=== PATIENT | male | born 1940 | race Caucasian/White ===

== ENCOUNTER 2017-05-21 06:57 | Inpatient (IN) | payer MEDICARE ==
[2017-05-21] MEDS ORDERED: Famotidine 20mg/50ml 20 MG/50 ML BAG IV STA (07:06)
[2017-05-21] MEDS ORDERED: Sodium Chloride 0.9% 1,000 ML IV STA ×2 (07:06→11:13)
--- NOTE | 2017-05-21 07:14 | ED PDOC ---
Arrival/HPI - General Time Seen by Provider: 05/21/17 07:06 - History of Present Illness Narrative History of Present Illness (Text): 05/21/17 07:10 Hx provided by pt's . Pt with a hx of back pain for which he takes opioids at home. Took movantic for the first time today, after which he developed nausea , and watery diarrhea accomp by diffuse abd pain, described as cramping. No chest pain or shortness of breath. No f/c, no other complaints. Past Medical History - Provider Review Nursing Documentation Reviewed: Yes Family/Social History Family/Social History: Unknown Family HX Allergies/Home Meds Allergies/Adverse Reactions: Allergies No Known Allergies Allergy (Verified 05/21/17 07:14) Home Medications: Home Meds Medication Instructions Recorded Confirmed Acetaminophen/Oxycodone Hydr 1 tab PO QID PRN 05/21/17 05/21/17 [Percocet 10/325 mg Tab] Lubiprostone [Amitiza] 24 mcg PO DAILY 05/21/17 05/21/17 Morphine [MS Contin] 60 mg PO BID 05/21/17 05/21/17 Naloxegol Oxalate [Movantik] 25 mg PO DAILY 05/21/17 05/21/17 Pantoprazole Sodium [Protonix] 40 mg PO DAILY 05/21/17 05/21/17 Physical Exam - Physical Exam Narrative Physical Exam (Text): 05/21/17 07:14 - Review of Systems Constitutional: Normal. absent: Fatigue, Weight Change, Fevers Eyes: Normal ENT: denies sore throat, denies tristhmus Respiratory: Normal. absent: SOB, Cough, Sputum Cardiovascular: absent: Chest Pain, Palpitations, Syncope Gastrointestinal: Abdominal Pain, Diarrhea, Nausea Genitourinary: Normal. absent: Dysuria, Frequency, Hematuria Musculoskeletal: Normal. absent: Arthralgias, Back Pain, Neck Pain Skin: no rashes, no erythema Neurological: absent: Focal Weakness Endocrine: Normal Hemo/Lymphatic: Normal Psychiatric: No suicidal or homicidal ideations Physical exam Patient appears age appropriate in no respiratory distress, moderate painful distress - Systems Exam Head: Present: Atraumatic, Normocephalic Pupils: Present: PERRL Extroacular Muscles: Present: EOMI Conjunctiva: Present: Normal Mouth: Present: Moist Mucous Membranes Neck: Present: Normal Range of Motion. No: MIDLINE TENDERNESS, Paraspinal Tenderness Respiratory/Chest: Present: Clear to Auscultation, Good Air Exchange. No: Respiratory Distress, Accessory Muscle Use, Tachypneic Cardiovascular: Present: Regular Rate and Rhythm, Normal S1, S2, Peripheal Pulses Present. No: Murmurs Abdomen: Present: Normal Bowel Sounds. No: Tenderness, Distention, Peritoneal Signs, Rebound, Guarding Back: Present: Normal Inspection. No: Midline Tenderness, Paraspinal Tenderness Upper Extremity: Present: Normal Inspection. No: Cyanosis, Edema Lower Extremity: Present: Normal Inspection. No: Edema Neurological: Present: GCS=15, Speech Normal, cranial nerves II through XII fully intact with no cerebellar abnormality, neurosensory fully intact. No focal neurological deficits. Skin: Present: Warm, Dry, Normal Color. No: Rashes Lymphatic: Present: OX3, NI, NC Psychiatric: Present: Alert, Oriented x 3, Normal Insight, Normal Concentration Vital Signs Temp Pulse Resp BP Pulse Ox 05/21/17 11:56 90 16 122/72 97 05/21/17 10:47 99.1 F 05/21/17 09:32 89 16 97/61 L 97 05/21/17 07:25 77 16 120/74 95 Medical Decision Making ED Course and Treatment: 05/21/17 07:15 76yo male with abd pain, nausea and diarrhea. Abd soft/nt/nd. Pt in moderate painful distress. Pain meds, labs, imaging ordered 05/21/17 07:38 EKG shows NSR at [address]-segment elevations, normal intervals. Interpreted by me. 05/21/17 09:38 PROCEDURE: CT Abdomen and Pelvis with contrast IMPRESSION: 1. Distended gallbladder with suspected cholelithiasis, moderate intrahepatic biliary dilatation and severe dilatation of the common bile duct without evidence for choledocholithiasis. Findings are consistent for acute calculus cholecystitis. Please correlate with ultrasound examination. 2. Fatty liver. 3. 5 mm nodule in the right middle lobe. A dedicated CT scan of the thorax without intravenous contrast on a nonemergent basis is recommended for complete evaluation of the lungs. 05/21/17 10:18 zosyn and abd us ordered pt in no painful distress at this time awaiting Dr. Wong's callback 05/21/17 11:[address] Gu, covering for Dr. Wong. Accepted admission. Asked for Dr. Borges and Deon on consults. Paged made pt and family aware of and agree with plan pain currently controlled 05/21/17 12:[address] Lazo from surgical service, aware of pt in the ED - Lab Interpretations Lab Results: 05/21/17 07:15 05/21/17 07:15 Lab Results 05/21/17 07:15: Sodium 142, Potassium 3.1 L, Chloride 101, Carbon Dioxide 27, Anion Gap 17, BUN 20, Creatinine 0.8, Est GFR ( Amer) > 60, Est GFR (Non- Af Amer) > 60, Random Glucose 172 H, Calcium 9.4, Total Bilirubin 0.5, AST 32, ALT 22, Alkaline Phosphatase 114, Total Protein 7.9, Albumin 4.2, Globulin 3.7, Albumin/Globulin Ratio 1.1, Lipase 65 05/21/17 07:15: PT 11.2, INR 1.04, APTT 24.4 05/21/17 07:15: WBC 8.8, RBC 4.30, Hgb 14.3, Hct 41.0 L, MCV 95.3, MCH 33.3, MCHC 34.9, RDW 12.6, Plt Count 184, MPV 10.1, Gran % 68.3 H, Lymph % (Auto) 24.7 , Carver % (Auto) 4.6, Eos % (Auto) 2.1, Baso % (Auto) 0.3, Gran # 5.99, Lymph # 2.2, Carver # 0.4, Eos # 0.2, Baso # 0.03 05/21/17 07:07: Urine Color Yellow, Urine Appearance Clear, Urine pH 7.5, Ur Specific [place] 1.010, Urine Protein Negative, Urine Glucose (UA) Negative, Urine Ketones Negative, Urine Blood Trace-intact H, Urine Nitrate Negative, Urine Bilirubin Negative, Urine Urobilinogen 0.2, Ur Leukocyte Esterase Negative , Urine RBC 0 - 2, Urine WBC 0 - 2, Ur Epithelial Cells 0 - 2, Urine Bacteria Trace, Urine Other Usperm I have reviewed the lab results: Yes - RAD Interpretation Radiology Orders: 05/21/17 07:07 ABD & PELVIS IV CONTRAST ONLY [CT] Stat 05/21/17 10:18 ABDOMEN COMPLETE [US] Stat - Medication Orders Current Medication Orders: Sodium Chloride (Sodium Chloride 0.9%) 1,000 mls @ 100 mls/hr IV .Q10H STA Stop: 05/21/17 21:12 Discontinued Medications Hydromorphone HCl (Dilaudid) 2 mg IVP STAT STA Stop: 05/21/17 07:25 Last Admin: 05/21/17 07:31 Dose: 2 mg Famotidine (Pepcid 20mg/50ml Premix) 20 mg in 50 mls @ 100 mls/hr IV STAT STA Stop: 05/21/17 07:35 Last Admin: 05/21/17 07:25 Dose: 100 mls/hr Sodium Chloride (Sodium Chloride 0.9%) 1,000 mls @ 1,000 mls/hr IV .Q1H STA Stop: 05/21/17 08:05 Last Admin: 05/21/17 07:21 Dose: 1,000 mls/hr Magnesium Sulfate 2 gm/ Sodium (Chloride) 104 mls @ 102 mls/hr IVPB ONCE ONE Stop: 05/21/17 09:24 Last Admin: 05/21/17 12:11 Dose: 102 mls/hr Potassium Chloride (Potassium Chloride 20 Meq/100 Ml) 20 meq in 100 mls @ 50 mls/hr IVPB Q2H VASYL Stop: 05/21/17 12:29 Last Admin: 05/21/17 08:34 Dose: 50 mls/hr Piperacillin Sod/Tazobactam Sod (Zosyn 4.5 Gm In Ns 100ml) 4.5 gm in 100 mls @ 200 mls/hr IVPB STAT STA PRN Reason: Protocol Stop: 05/21/17 10:46 Iohexol (Omnipaque 350 100 Ml) Confirm Administered Dose 350 mg .ROUTE .STK-MED ONE Stop: 05/21/17 07:40 Morphine Sulfate (Morphine) 6 mg IVP STAT STA Stop: 05/21/17 07:07 Last Admin: 05/21/17 07:21 Dose: 6 mg Ondansetron HCl (Zofran Inj) 4 mg IVP STAT STA Stop: 05/21/17 07:07 Last Admin: 05/21/17 07:21 Dose: 4 mg Ondansetron HCl (Zofran Inj) 4 mg IVP STAT STA Stop: 05/21/17 08:19 Last Admin: 05/21/17 08:26 Dose: 4 mg Disposition/Present on Arrival - Present on Arrival Any Indicators Present on Arrival: No - Disposition Have Diagnosis and Disposition been Completed?: Yes Diagnosis: Cholecystitis Disposition: HOSPITALIZED Disposition Time: 11:13 Patient Plan: Admission Patient Problems: Current Active Problems Problem Status Onset Cholecystitis Acute Condition: FAIR
[2017-05-21 07:22] LABS: BASO # 0.03 K/mm3 (0.0-2.0); BASO % 0.3 % (0.0-3.0); EOS # 0.2 (0.0-0.7); EOS % 2.1 % (1.5-5.0); GRAN # 5.99 (1.4-6.5); GRAN % 68.3 % (50.0-68.0); HEMOGLOBIN 14.3 gm/dL (14.0-18.0); LYMPH # 2.2 (1.2-3.4); LYMPH % 24.7 % (22.0-35.0); MEAN CELL VOLUME 95.3 fL (80.0-105.0); MEAN CORPUSCULAR HEMOGLOBIN 33.3 pg (25.0-35.0); MEAN CORPUSCULAR HGB CONC 34.9 g/dl (31.0-37.0); MEAN PLATELET VOLUME 10.1 fl (7.0-11.0); MONO # 0.4 (0.1-0.6); MONO % 4.6 % (1.0-6.0); PLATELET COUNT 184 10^3/uL (120.0-450.0); RED CELL DISTRIBUTION WIDTH 12.6 % (11.5-14.5); WHITE BLOOD COUNT 8.8 10^3/ul (4.5-11.0)
[2017-05-21] MEDS ORDERED: HYDROmorphone 2 mg/ml ISec IVP STA (07:24)
[2017-05-21 07:37] LABS: ALB/GLOB RATIO 1.1 (1.1-1.8); ALBUMIN 4.2 g/dL (3.0-4.8); ALT/SGPT 22 U/L (7-56); AST/SGOT 32 U/L (15-59); BLOOD UREA NITROGEN 20 mg/dL (7-21); CALCIUM 9.4 mg/dL (8.4-10.5); GFR AFRICAN-AMERICAN > 60; GFR NON-AFRICAN AMERICAN > 60; INR 1.04 (0.93-1.08); LIPASE 65 U/L (23-300); PARTIAL THROMBOPLASTIN TIME 24.4 Seconds (23.7-30.8); PROTHROMBIN TIME 11.2 Seconds (9.9-11.8)
[2017-05-21] MEDS ORDERED: Iohexol 350 MG/100 ML VIAL ONE (07:39)
[2017-05-21] MEDS ORDERED: Magnesium Sulfate 2 GM in Sodium Chloride 0.9% 100 ML IVPB ONE (08:23)
--- NOTE | 2017-05-21 09:35 | CT ---
PROCEDURE: CT Abdomen and Pelvis with contrast HISTORY: Abdominal pain COMPARISON: None. TECHNIQUE: CT scan of the abdomen and pelvis was performed after intravenous administration of contrast. Oral contrast was not administered. Coronal and sagittal reformatted images were obtained. Contrast dose: 100 cc Omnipaque 350 Radiation dose: Total exam DLP = 313.45 mGy-cm. This CT exam was performed using one or more of the following dose reduction techniques: Automated exposure control, adjustment of the mA and/or kV according to patient size, and/or use of iterative reconstruction technique. FINDINGS: LOWER THORAX: There is a 5 mm nodule in the right middle lobe. There is dependent atelectasis in the lung bases. LIVER: There is fatty infiltration in the liver. There is moderate dilatation of the intrahepatic biliary ducts. GALLBLADDER AND BILE DUCTS: The gallbladder is distended and there is question of small gallstones in the fundus. There is severe dilatation of the common bile duct which measures 2.5 cm. No evidence of choledocholithiasis. PANCREAS: There is diffuse atrophy of the pancreas. There is mild dilatation of the pancreatic duct which measures 4 mm SPLEEN: The spleen is normal in size and there is homogeneous enhancement. ADRENALS: Both adrenal glands are normal in size without discrete nodule. KIDNEYS AND URETERS: Both kidneys are normal in size and there is homogeneous enhancement without hydronephrosis or focal mass. There is a 1.3 cm exophytic simple cyst in the left lower pole. 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 There are atherosclerotic aortoiliac calcifications. BOWEL: The small bowel loops are normal in caliber. There is apparent mild mural thickening in the colon, most pronounced in the sigmoid colon which may be related to underdistention. No evidence of bowel dilatation or obstruction. APPENDIX: Normal appendix. PERITONEUM: No free fluid. No free air. LYMPH NODES: No enlarged lymph nodes. BLADDER: Unremarkable. REPRODUCTIVE: Unremarkable. BONES: No acute fracture. There is diffuse bone demineralization and multilevel degenerative changes in the spine. There is postsurgical fusion of the lower lumbar vertebral bodies. OTHER FINDINGS: None. IMPRESSION: 1. Distended gallbladder with suspected cholelithiasis, moderate intrahepatic biliary dilatation and severe dilatation of the common bile duct without evidence for choledocholithiasis. Findings are consistent for acute calculus cholecystitis. Please correlate with ultrasound examination. 2. Fatty liver. 3. 5 mm nodule in the right middle lobe. A dedicated CT scan of the thorax without intravenous contrast on a nonemergent basis is recommended for complete evaluation of the lungs.
[2017-05-21 09:56] LABS: PH,URINE 7.5 (4.7-8.0); URINE BILIRUBIN NEGATIVE (NEGATIVE); URINE BLOOD TRACE-INTACT (NEGATIVE); URINE GLUCOSE (UA) NEGATIVE (NEGATIVE); URINE LEUKOCYTE ESTERASE NEGATIVE Leu/uL (NEGATIVE); URINE NITRATE NEGATIVE (NEGATIVE); URINE PROTEIN NEGATIVE mg/dL (<30 mg/dL); URINE UROBILINOGEN 0.2 E.U./dL (<1 E.U./dL)
[2017-05-21 09:57] LABS: URINE APPEARANCE CLEAR (CLEAR); URINE COLOR YELLOW (YELLOW)
[2017-05-21 10:10] LABS: URINE BACTERIA TRACE (NEG); URINE EPITHELIAL CELLS 0 - 2 /hpf (0-5); URINE RBC 0 - 2 /hpf (0-2); URINE WBC 0 - 2 /hpf (0-6)
[2017-05-21] MEDS ORDERED: Piperacill/Tazo 4.5gm in NS 4.5 GM/100 ML BAG IVPB STA (10:17)
--- NOTE | 2017-05-21 12:44 | US ---
HISTORY: RIGHT SIDED ABD PAIN COMPARISON: preceding abdomen pelvis CT with contrast 05/21/2017. TECHNIQUE: Sonographic evaluation of the abdomen. FINDINGS: LIVER: Measures 14.1 cm. Normal echogenicity of the liver parenchyma. No focal lesion is identified within the liver however there is prominent intrahepatic biliary dilatation including an 18.5 mm common hepatic duct. GALLBLADDER: Distended without mural thickening. However, sludge and extensive cholelithiasis layering the dependent portion. No pericholecystic fluid collection is appreciated. The common bile duct is dilated. COMMON BILE DUCT: Measures 21.0 mm. No definitive choledocholithiasis. PANCREAS: Pancreatic duct is dilated to 3.5 mm with an atrophic pancreas identified. No definitive pancreatic mass is evident with the tail partially obscured by overlying bowel. RIGHT KIDNEY: Measures 9.5 x 5.3 x 6.7cm. Poor corticomedullary differentiation may indicate an element of intrinsic medical renal disease. No obstructive uropathy. No no urolithiasis appreciated. LEFT KIDNEY: Measures 11.0 x 5.0 x 5.3cm. A small cyst identified at the lower pole measure 1.7 x 1.2 x 1.3 cm. Poor corticomedullary differentiation may indicate an element of intrinsic medical renal disease. No obstructive uropathy. No no urolithiasis appreciated. SPLEEN: Normal in size and contour. No mass. AORTA: No aneurysmal dilatation. IVC: Unremarkable. OTHER FINDINGS: None. IMPRESSION: Grossly dilated biliary tree is appreciate diffusely with cholelithiasis and sludge layering in the dependent gallbladder. Other than distention, there is no overt ultrasound sign to suggest cholecystitis at this time however. Pancreatic duct is also dilated without obvious pancreatic mass however the tail is obscured by overlying bowel gas. Consider potential ampullary lesion or calculus obstructing the biliary tree and pancreatic duct. Further clinical correlation is advised. Follow-up MRCP recommended. Small cyst lower pole left kidney.
[2017-05-21 13:06] VITALS: BP 113/70; PULSE 86; TEMP 98.5
[2017-05-21] MEDS ORDERED: Morphine 4 mg/ml ISec IVP STA (13:09)
--- NOTE | 2017-05-21 13:42 | CARD ---
APPROVED REPORT EKG Measurement Heart [id number] <Conclusion> Normal sinus rhythm Septal infarct, age undetermined Abnormal ECG
[2017-05-21 16:20] VITALS: RESP 16; BMI 19.2
[2017-05-21 16:41] VITALS: O2SAT 95
[2017-05-21] MEDS ORDERED: Morphine 4 mg/ml ISec IVP PRN (16:43)
--- NOTE | 2017-05-21 17:58 | CP.PCM.CON ---
History of Present Illness - History of Present Illness History of Present Illness: 76M hx of chronic opiod use presented to the ED with N/V/D non-bloody since 5: 30am. Pt took a new dose of Movantik for opiod induced constipation. Pt abdominal pain has been worsening since arrival. after administration of morphine pt has been getting better. Pt is very reluctant Past Patient History - Past Social History Smoking Status: Light Smoker < 10 Cigarettes Daily - MUSCULOSKELETAL/RHEUMATOLOGICAL Hx Falls: No - PSYCHIATRIC Hx Substance Use: No - SURGICAL HISTORY Hx Surgeries: Yes Other/Comment: Lumbar fusion Meds Allergies/Adverse Reactions: Allergies Allergy/AdvReac Type Severity Reaction Status Date / Time No Known Allergies Allergy Verified 05/21/17 07:14 - Medications Medications: Current Medications Sodium Chloride (Sodium Chloride 0.9%) 1,000 mls @ 100 mls/hr IV .Q10H STA Stop: 05/21/17 21:12 Last Admin: 05/21/17 13:19 Dose: 100 mls/hr Morphine Sulfate (Morphine) 4 mg IVP Q4H PRN PRN Reason: Pain, severe (8-10) Last Admin: 05/21/17 16:52 Dose: 4 mg Results - Vital Signs Recent Vital Signs: Last Vital Signs Temp 98.5 F 05/21/17 16:15 Pulse 86 05/21/17 16:15 Resp 16 05/21/17 16:15 BP 113/70 05/21/17 16:15 Pulse Ox 95 05/21/17 16:00 - Labs Result Diagrams: 05/21/17 07:15 05/21/17 07:15 Assessment & Plan - Assessment and Plan (Free Text) Assessment: 76M opioid dependance w/ CBD dilatation Plan: - MRCP to determine possible etiology of CBD dilatation - GI recs for poss. EUS followed by ERCP * LFT, AlkPhos, Tbili WNL. Considering other sources of CBD dilation other than gallstone - If source of CBD dilation 2/2 gallstone- surgical intervention - NPO past midnight - further Recs per Dr. Barry Pt. family does not Pt to be in hospital. family considering signing out EMILY Ospina PGY1 - Date & Time Date: 05/21/17 Time: 12:00
[2017-05-21] MEDS ORDERED: Gadodiamide 287 MG/ML VIAL (15ML) IV ONE (18:02)
[2017-05-21] MEDS ORDERED: HYDROmorphone 2 mg/ml ISec IVP PRN (20:50)
--- NOTE | 2017-05-21 22:02 | CP.PCM.PN ---
Subjective - Date & Time of Evaluation Date of Evaluation: 05/21/17 Time of Evaluation: 21:00 - Subjective Subjective: pt was admitted for abdominal pain and back pain wants to sign AMA. PT states he does not want to stay in hospital any more he will go and see his own pt. Objective - Vital Signs/Intake and Output Vital Signs (last 24 hours): Temp Pulse Resp BP Pulse Ox 98.5 F 86 16 113/70 95 05/21/17 16:15 05/21/17 16:15 05/21/17 16:15 05/21/17 16:15 05/21/17 16:00 - Labs Labs: PT 11.2 Seconds (9.9-11.8) 05/21/17 07:15 INR 1.04 (0.93-1.08) 05/21/17 07:15 APTT 24.4 Seconds (23.7-30.8) 05/21/17 07:15 - Constitutional Appears: No Acute Distress - Head Exam Head Exam: NORMOCEPHALIC - Eye Exam Eye Exam: Normal appearance Pupil Exam: PERRL - ENT Exam ENT Exam: Mucous Membranes Moist - Neck Exam Neck Exam: Full ROM - Respiratory Exam Respiratory Exam: NORMAL BREATHING PATTERN - Cardiovascular Exam Cardiovascular Exam: RRR, +S1, +S2 - GI/Abdominal Exam GI & Abdominal Exam: Soft, Normal Bowel Sounds - Rectal Exam Rectal Exam: Deferred - Extremities Exam Extremities Exam: Full ROM - Psychiatric Exam Psychiatric exam: Normal Affect - Skin Skin Exam: Dry, Warm Assessment and Plan - Assessment and Plan (Free Text) Assessment: AMA. hx of abdominal pain and abnormal gall bladder scan. back pain. Plan: risk of infection sepsis and explained to pt.
--- NOTE | 2017-05-22 15:25 | MRI ---
PROCEDURE: Magnetic Resonance Cholangiopancreatography HISTORY: Dilated CBD COMPARISON: None available. TECHNIQUE: Axial and coronal T2 weighted imaging was performed. The study was limited. The patient refused to continue. FINDINGS: MRCP: The common duct is severely dilated measuring 19 mm in diameter. There are no stones seen and no evidence of an obstructing mass. There is mild intrahepatic ductal dilatation. The gallbladder is distended. LIVER: Unremarkable. GALLBLADDER: Gallbladder distended. No visible stones SPLEEN: Unremarkable. PANCREAS: The pancreatic duct measures 7 mm in diameter. The pancreas is atrophic ADRENALS: Unremarkable. KIDNEYS: Unremarkable. AORTA: 3.1 x 3.9 cm ASCITES: None. OTHER FINDINGS: The report concurs with the preliminary [facility] report IMPRESSION: Dilated gallbladder and dilated common bile duct and pancreatic duct. No evidence of pancreatic mass or distal stone
== END 2017-05-21 21:39 | disposition left against medical advice (07) | DRG 446 ==
LOC: ED 06:57 → MERGE 11:13 → ERH 11:13 → 5RSO 13:49
PROVIDERS: ADMIT Internal Medicine; ATTEND Internal Medicine
DX: K81.0 Acute cholecystitis (principal); K83.8 Other specified diseases of biliary tract; M54.9 Dorsalgia, unspecified; Z87.891 Personal history of nicotine dependence